=== PATIENT | female | born 1960 | race African-American/Black ===

== ENCOUNTER 2020-03-01 12:38 | Inpatient (IN) | payer MEDICARE, OTHER ==
[~2020-03-01] VITALS: Ht 165.1 cm; Wt 100.7 kg
--- NOTE | ~2020-03-01 | HEMODYNAMI ---
PATIENT:LILIANA SANDERS MEDICAL RECORD: [id number] : 64 LOCATION:[facility] D.2125 [facility]# [id number] ADMISSION DATE: 03/01/20 Generatedon:03/02/202010:43 Patient name: LILIANA SANDERS Patient #: [id number] SSN: : 1960 Date of study: 03/02/2020 Page: Of Hemodynamic Procedure Report Patient Data Patient Demographics Procedure consent was obtained First Name: LILIANA Gender: Female Last Name: MARILYN : 1960 Middle Initial: J Age: 59 year(s) Patient #: [id number] Race: Black Additional ID: [id number] Contact details Address: [address] [address] State: [place] City: [place] Zip code: [address] Past Medical History Allergies Allergen Reaction Date Comments Reported Other allergy 03/02/2020 LORENZO FLOOD Admission Admission Data Admission Date: 03/01/2020 Admission Time: 15:44 Admit Source: Emergency department Room #: D.2125 Height (in.): 64.96 BSA: 2.06 (m2) Height (cm.): 165 BMI: 36.73 (kg/m2) Weight (lbs.): 220.46 Weight (kg.): 100 Lab Results Lab Result Date: 03/02/2020 Lab Result Time: 0:00 Biochemistry Name Units Result Min Max BUN mg/dl 15 --(--*-)-- 7 18 Creatinine mg/dl 1 --(--*-)-- 0.6 1.3 eGFR ml/min 61.83965 *-(----)-- 90 120 NONAFRICAN CBC Name Units Result Min Max Hematocrit % 34.9 *-(----)-- 42 54 Hemoglobin g/dl 11.1 *-(----)-- 13.5 17.5 Procedure Procedure Types Cath Procedure Diagnostic Procedure LHC LHC w/Coronaries Sedation Charges Moderate Sedation up to 15 minutes Procedure Description Procedure Date Procedure Date: 03/02/2020 Procedure Start Time: 10:29 Procedure End Time: 10:42 Procedure Staff Name Function Boston Blanco MD Performing Physician Prabha Persaud RT Monitor Cinthya Raygoza RT Scrub Alvina Villegas RN Nurse Gracie Salcido RT Compugraph Operator Procedure Data Cath Procedure Fluoroscopy Diagnostic fluoroscopy Total fluoroscopy Time: 0.9 time: 0.9 min min Diagnostic fluoroscopy Total fluoroscopy dose: 246 dose: 246 mGy mGy Contrast Material Contrast Material Type Amount (ml) Isovue 300 45 Entry Location Entry Primary Successful Side Size Upsize Upsize Entry Closure Succes sful Closure Location (Fr) 1 (Fr) 2 (Fr) Remarks Device Remarks Femoral Right 5 Fr Exoseal artery Estimated blood loss: 10 ml Diagnostic catheters Device Type Used For End Catheter Placement MULTIPACK JL 4.0 5Fr Procedure catheter MULTIPACK 3DRC 5Fr Procedure catheter MULTIPACK Pigtail 5 Fr Ventriculography catheter Procedure Complications No complications Procedure Medications Medication Administration Route Dosage 0.9% NaCl I.V. 100 ml/hr Oxygen etCO2 Nasal cannula 2 l/min Lidocaine 2% added to field 20 Heparin Flush Bag added to field 2 bags (1000units/500ml NS) Versed I.V. 2 mg Fentanyl I.V. 50 mcg Ativan 2 mg Fentanyl I.V. 50 mcg Hemodynamics Rest BSA: 2.06 (m2) HGB: 11.1 (g/dl) O2 Consumption: Estimated: 215.26 (ml/min) O2 Co nsumption indexed: Estimated:104.5 (ml/min/m) Heart Rate: 93 (bpm) Pressure Samples Time Site Value (mmHg) Purpose Heart Use Rate(bpm) 10:35 LV 160/7,22 Snapshot 90 Gradients Valve Time Site Site Mean SEP/DFP Peak To Heart Use 1 2 (mmHg) (sec/min) Peak Rate (mmHg) (bpm) Aortic 10:35 LV AO 89 Snapshots Pre Cath Intra NCS Post Cath Vital Signs Time Heart Resp SPO2 etCO2 NIBP (mmHg) Rhythm Pain Sedation Rate (ipm) (%) (mmHg) Status Level (bpm) 10:18:23 94 18 100 38.9 178/102(145) NSR 0 (11) 10(A) , No pain 10:22:47 87 22 98 38.9 153/81(128) NSR 0 (11) 10(A) , No pain 10:27:12 83 20 97 41.9 147/76(113) NSR 0 (11) 10(A) , No pain 10:31:28 89 14 96 43.5 144/87(115) NSR 0 (11) 9(A) , No pain 10:36:27 92 22 98 12.7 Measuring NSR 0 (11) 9(A) , No pain 10:36:31 94 25 97 17.2 151/92(119) NSR 0 (11) 10(A) , No pain 10:41:30 97 24 40.4 Measuring NSR 0 (11) 10(A) , No pain 10:42:54 98 13 40.4 Time NSR 0 (11) 10(A) Exceeded , No pain Medications Time Medication Route Dose Verified Delivered Reason Notes Eff ectiveness by by 10:17:01 0.9% NaCl I.V. 100 Boston Alvina used for ml/hr Bella Bakari procedure MD BARRERA 10:17:07 Oxygen etCO2 2 Boston Alivna used for Nasal l/min [facility] procedure cannula MD BARRERA 10:17:12 Lidocaine 2% added 20ml Boston Boston for local to vial [facility] anesthetic field MD SPENCER 10:17:16 Heparin Flush added 2 Boston Boston used for Bag to bags [facility] procedure (1000units/500ml field MD SPENCER NS) 10:25:11 Versed I.V. 2 mg Boston Alvina for Bella Bakari sedation MD BARRERA 10:25:15 Fentanyl I.V. 50 Boston Alvina for mcg BellaAndre Villegas sedation MD BARRERA 10:29:53 Ativan IVP 2 mg Boston Alvina for Bella Bakari sedation MD BARRERA 10:29:56 Fentanyl I.V. 50 Boston Alvina for mcg Bella Bakari sedation material dispatcher Log Time Note 9:59:04 Informed consent obtained and on chart 10:01:18 Prabha BENSON(R) sent for patient. Start room use. 10:01:20 Procedure Status Urgent Heart Cath (IP). 10:01:21 Time tracking: Regular hours (M-F 7:00 - 5:00) 10:01:26 Plan of Care:Hemodynamics will remain stable., Cardiac rhythm will remain stable., Comfort level will be maintained., Respiratory function will remain adequate., Patient/ family verbilizes understanding of procedure., Procedure tolerated without complication., Recovers from procedure without complications.. 10:02:24 H&P Date Dictated: 03/01/2020 ER History on chart.. 10:04:24 Patient allergic to Other allergyREGLAN, COMPAZINE 10:: Lab Result : BUN 15 mg/dl 10:: Lab Result : eGFR NONAFRICAN 61.01948 ml/min 10:: Lab Result : Creatinine 1 mg/dl :: Lab Result : Hematocrit 34.9 % 10:: Lab Result : Hemoglobin 11.1 g/dl 10::18 Patient Weight : 220.46 lbs 10::22 Patient Height : 64.96 inches 10:08:33 Admit Source: Emergency department 10:11:44 Patient received from Med II to CCL 1 Alert and oriented. Tansferred to table in Supine position. 10:11:46 Warm blankets applied, and willis hugger turned on for patient comfort. 10:11:47 Correct patient and procedure confirmed by team. 10:16:53 ECG and BP/O2 sat monitors applied to patient. 10:17:01 0.9% NaCl 100 ml/hr I.V. was administered by Alvina Villegas RN; used for procedure; Verbal order read back and verified. 10:17:05 Vital chart was started 10:17:07 Oxygen 2 l/min etCO2 Nasal cannula was administered by Alvina Villegas RN; used for procedure; Verbal order read back and verified. 10:17:12 Lidocaine 2% 20ml vial added to field was administered by Boston Blanco MD; for local anesthetic; Verbal order read back and verified. 10:17:16 Heparin Flush Bag (1000units/500ml NS) 2 bags added to field was administered by Boston Blanco MD; used for procedure; Verbal order read back and verified. 10:17:55 Baseline sample Acquired. 10:18:01 Rhythm: sinus rhythm 10:18:03 Full Disclosure recording started 10:19:39 H&P Date Dictated: 03/01/2020 Emergent; H&P N/A. 10:19:41 Pre-procedure instructions explained to patient. 10:19:43 Family in waiting room. 10:19:48 Patient NPO since Midnight. 10:19:50 Is the patient allergic to Iodine/contrast media? No. 10:19:53 Was the patient premedicated? Yes 10:20:18 Is patient on blood thinner?No 10:20:22 Patient diabetic? Yes. 10:20:24 If diabetic: On Metformin? No 10:20:56 Snore? Yes 10:20:58 Sleep apnea? No 10:21:12 Patient pain scale 0/10 ?. 10:21:36 IV patent on arrival in left forearm with 0.9% NaCl at [facility]. 10:21:39 Lab results completed and on chart. 10:22:12 Stress Test: no; N/A ? 10:22:17 Right groin area was prepped with chlora-prep and draped in sterile fashion 10:22:18 Alarms reviewed by R. N. 10:22:18 Sharps counted by scrub and verified by R.N. 10:22:21 Physician arrived 10::22 --------ALL STOP TIME OUT------ 10::23 Final Timeout: patient, procedure, and site verified with staff and physician. All members of the team are in agreement. 10:22:25 Right groin site verified by team. 10:22:29 Fire Safety Assessment: A--An alcohol-based skin anteseptic being used preoperatively., C--Open oxygen or nitrous oxide is being used., D--An ESU, laser, or fiber-optic light is being used. 10:22:41 Physical assessment completed. ASA score P 2 - A patient with mild systemic disease as per Boston Blanco MD. 10:23:04 3a) 45-59 Moderately reduced kidney function. 10:23:37 Maximum allowable contrast dose (3.7 X eGFR X 0.75)169 ml. 10:23:41 Sedation plan: IV Moderate Sedation Medication:Versed, Fentanyl 10:23:45 Use device set Femoral Dx 10:23:47 ACIST Syringe (12316) opened to sterile field. 10:23:47 Bag Decanter () opened to sterile field. 10:23:48 Medline Cath Pack ([id number]) opened to sterile field. 10:23:50 ACIST Hand Control (90612) opened to sterile field. 10:23:50 ACIST Manifold (33886) opened to sterile field. 10:23:57 SHEATH 5FR [place] (TZM992) opened to sterile field. 10:23:57 EMERALD Guide Wire (502-416) opened to sterile field. 10:24:01 DIAGNOSTIC Multipack 5Fr catheter set (VR5067) opened to sterile field. 10:24:04 Tegaderm 4 x 4 (1626W) opened to sterile field. 10:25:11 Versed 2 mg I.V. was administered by Alvina Villegas RN; for sedation; Verbal order read back and verified. 10:25:15 Fentanyl 50 mcg I.V. was administered by Alvina Villegas RN; for sedation; Verbal order read back and verified. 10:29:25 Procedure started. 10:29:37 Local anesthetic to right femoral artery with Lidocaine 2% by Boston Blanco MD.INITIAL ACCESS ONLY 10:29:45 A 5 Fr sheath was inserted into the Right Femoral artery 10:29:53 Ativan 2 mg IVP was administered by Alvina Villegas RN; for sedation; Verbal order read back and verified. 10:29:56 Fentanyl 50 mcg I.V. was administered by Alvina Villegas RN; for sedation; Verbal order read back and verified. 10:30:25 j wire advanced. 10:32:03 A MULTIPACK JL 4.0 5Fr catheter was advanced over the wire and used for Procedure. 10:32:05 LCA angiography performed. 10:33:20 Catheter removed. 10:33:38 A MULTIPACK 3DRC 5Fr catheter was advanced over the wire and used for Procedure. 10:33:44 RCA angiography performed. 10:34:24 Catheter removed. 10:34:49 A MULTIPACK Pigtail 5 Fr catheter was advanced over the wire and used for Ventriculography. 10:34:55 LV gram done using GUERIN 10:35:24 EF : 55 % 10:35:40 EXOSEAL 5Fr (EX500) opened to sterile field. 10:35:46 Catheter removed. 10:35:58 Sheath removed intact; hemostasis achieved with Exoseal to the Right Femoral artery. 10:36:32 Procedure ended.(Physican Out) 10:36:46 Fluoroscopy time 00.90 minutes. 10:37:35 Fluoroscopy dose: 246 mGy 10:37:35 Flurop Dose total: 246 10:37:46 Dose Area Product 10 mGy/cm. 10:38:00 Contrast amount:Isovue 300 45ml. 10:38:03 Maximum allowable dose exceeded? No. 10:38:05 Sharps counted by scrub and verified by R.N. 10:38:06 Insertion/operative site no bleeding no hematoma. 10:38:10 Post right femoral artery:stable 10:38:19 Post Procedure Pulses reassessed and unchanged 10:39:00 Post-procedure physical assessment completed. ASA score P 1 - A normal healthy patient as per Boston Blanco MD. 10:39:05 Post procedure rhythm: unchanged. 10:39:11 Estimated blood loss: 10 ml 10:39:13 Post procedure instruction explained to patient.Patient verbalizes understanding. 10:41:08 Procedure type changed to Cath procedure, Diagnostic procedure, LHC, C w/Coronaries, Sedation Charges, Moderate Sedation up to 15 minutes 10:41:12 Procedure and supply charges have been captured, reviewed, submitted and are correct. 10:41:34 Procedure Complication : No complications 10:41:38 Vital chart was stopped 10:41:47 [facility] Findings: mild to moderate CAD (<70%) 10:41:49 Operative report dictated upon procedure completion. 10:41:52 Report given to Med II. 10:41:58 Patient transfered to Med II with Bed. 10:42:16 Procedure ended. 10:42:16 Full Disclosure recording stopped 10:42:22 End room use (Document Last) 10:42:44 End room use (Document Last) 10:43:10 End room use (Document Last) Device Usage Item Name Manufacture Quantity Catalog Hospital Part Current Minimal L ot# / Number Charge Number Stock Stock Serial# Code ACIST Acist 1 44995 [id number] 331383 [id number] 20 Syringe Medical (84572) Systems Inc Bag Microtek 1 2001S 829841 42143 478591 5 Decanter Medical Inc. () Medline Medline 1 [id number] 446858 48598 795930 5 Cath Pack ([id number]) ACIST Hand Acist 1 62187 305056 838068 393246 5 Control Medical (29081) Systems Inc ACIST Acist 1 11630 412931 622872 235248 5 Manifold Medical (76964) Systems Inc SHEATH 5FR Terumo 1 [id number] 606054 901786 343744 5 [place] (GMS266) EMERALD Cardinal 1 502-455 470640 531869 278903 5 Guide Wire Health (502-455) DIAGNOSTIC Cardinal 1 [id number] 210895 97348 353331 30 Multipack Health 5Fr catheter set (JE4936) Tegaderm 4 3M 1 1626W 703630 246918 195621 5 x 4 (1626W) MULTIPACK Cardinal 1 366409 5 JL 4.0 5Fr Health catheter MULTIPACK Cardinal 1 045830 5 3DRC 5Fr Health catheter MULTIPACK Cardinal 1 520333 5 Pigtail 5 Health Fr catheter EXOSEAL 5Fr Cardinal 1 EX500 301142 677584 921529 10 (EX500) Health Signature Audit [place] Stage Time Signature Unsigned Intra-Procedure 03/02/2020 Prabha Persaud 10:42:44 AM RT(R) Intra-Procedure 03/02/2020 Alvina Villegas 10:43:10 AM RN Intra-Procedure 03/02/2020 Bsoton Kenney 10:43:33 AM Andre SPENCER [id number] [place] [address]
[2020-03-01 13:07] LABS: BASOPHILS 0.3 % (0-2); EOSINOPHILS 0 % (0-7); HEMATOCRIT 37.6 % (36.0-48.0); HEMOGLOBIN 11.9 g/dL (12-16); IMMATURE GRANULOCYTES 0.3 % (0-5); LYMPHOCYTES 8.7 % (15-50); MCH 21.3 pg (26.0-34.0); MCHC 31.6 g/dL (31.0-37.0); MCV 67.3 fL (80.0-100.0); MONOCYTES 2.5 % (2-11); NEUTROPHILS 88.2 % (40-80); PLATELET COUNT 430 10x3/uL (130-400); RBC 5.59 10x6/uL (4.00-5.40); RDW 19.4 % (11.5-14.5); WBC 11.4 10x3/uL (4.8-10.8)
[2020-03-01 13:29] LABS: ANION GAP 11.4 mmol/L (8-16); CALCIUM 9.3 mg/dL (8.5-10.1); CARBON DIOXIDE 29.2 mmol/L (21.0-32.0); CREATININE - SERUM 1.4 mg/dL (0.6-1.3); POTASSIUM - SERUM 3.6 mmol/L (3.5-5.1)
[2020-03-01 13:43] LABS: ALBUMIN 3.8 g/dL (3.4-5.0); BILIRUBIN - TOTAL 0.31 mg/dL (0.2-1.3); PROTEIN - SERUM 7.8 g/dL (6.4-8.2)
[2020-03-01 13:56] LABS: TROPONIN-I 0.133 ng/mL (0.000-0.060)
--- NOTE | 2020-03-01 14:35 | NUR ---
PT LEFT ED VIA STRETCHER FOR CT
[2020-03-01 15:22] LABS: GLUCOSE 1000 mg/dL (NEGATIVE); KETONE NEGATIVE (NEGATIVE); NITRITE NEGATIVE (NEGATIVE); UROBILINOGEN NORMAL (NORMAL)
[2020-03-01 15:23] LABS: BILIRUBIN NEGATIVE (NEGATIVE)
--- NOTE | 2020-03-01 16:24 | NUR ---
PT REQUESTING TO LEAVE, EDP AWARE. PT AMBULATED TO RESTROOM.
[2020-03-01 17:21] VITALS: BP 170/99; Ht 165.1 cm; Wt 100.7 kg
[2020-03-01 19:03] LABS: CKMB 3.4 U/L (0.0-3.6); CREATINE KINASE 269 UL (21-215)
[2020-03-01 19:04] LABS: TROPONIN-I 0.121 ng/mL (0.000-0.060)
[2020-03-01] MEDS ORDERED: TRICEBA SC (19:43)
[2020-03-01] MEDS ORDERED: HYDROCHLOROTHIA25 MG PO (19:44)
[2020-03-01] MEDS ORDERED: DIOVAN40 MG PO (19:44)
[2020-03-01 20:00] VITALS: BP 127/64
[2020-03-01 23:44] LABS: CKMB 3.2 U/L (0.0-3.6); CREATINE KINASE 288 UL (21-215)
[2020-03-02] VITALS: BP 151/74
--- NOTE | 2020-03-02 00:54 | NUR ---
INITIAL ROUNDS COMPLETED AT 1915 HRS. PT DEMANDING IV DILAUDID INSTEADY OF MORPHINE. HEALTHAR SERVICES PAGED AT 1954 AND 2029 HRS. ASSESSMENT COMPLETED AT [address] PER CM HR 110. ALERT AND ORIENTED TO PERSON, PLACE AND TIME. FERNANDES. IV TO RFA WITH NS AT 75CC/HR AND ZOFRAN DRIP AT 4.7CC/HR. IV PATENT. LUNGS DIMINISHED IN BASES BILAT. FERNANDES. PALPABLE PERIPHERAL PULSE. HYPOACTIVE BS NOTED. HEALTHAR ERVICES REPAGED AT 2099 HRS. PAGE RETURNED AT 2109 HRS. INFORMED Francesca WILLARD APN PT WANTING IV DILAUDID INSTEAD OF MORPHINE. NEW ORDER RECEIVED AND NOTED. PM FSNS 236. 8 UNITS REG INSULIN GIVEN SUB-Q TO UPPER R ARM. DILAUDID 1MG SIVP GIVEN FOR C/O ABD PAIN 04/10. EKG DONE AT 0020 HRS. PT REQUESTING DILAUDID. INFORMED PT DILAUDID NOT DUE UNTIL 0150 HRS. PT STATED UNDESTANDING. PT CURRENTLY RESTING WITH EYES CLOSED. RESP EVEN AND REGULAR. SR UP X1,CALL LIGHT WITHIN REACH.
--- NOTE | 2020-03-02 01:57 | NUR ---
DILAUDID 1MG SIVP GIVEN FOR C/O ABD PAIN 02/07. SR UP X1,CALL LIGHT WITHIN REACH.
[2020-03-02 04:00] VITALS: BP 178/84
--- NOTE | 2020-03-02 04:40 | NUR ---
PT RESTING WITH EYES CLOSED. RESP EVEN AND REGULAR. CALL LIGHT WITHIN REACH.
--- NOTE | 2020-03-02 06:02 | NUR ---
AM FSBS 113. NO COVERGE NEEDED. DILAUDID 1MG SIVP GIVEN FOR C/O ABD PAIN. PT RESTED WELL DURING SHIFT. NEEDS MET; WILL CONTINUE TO MONITOR.
[2020-03-02 07:09] LABS: BASOPHILS 0.1 % (0-2); EOSINOPHILS 0.1 % (0-7); HEMATOCRIT 34.9 % (36.0-48.0); HEMOGLOBIN 11.1 g/dL (12-16); IMMATURE GRANULOCYTES 0.3 % (0-5); LYMPHOCYTES 8.8 % (15-50); MCH 21.3 pg (26.0-34.0); MCHC 31.8 g/dL (31.0-37.0); MONOCYTES 6.2 % (2-11); NEUTROPHILS 84.5 % (40-80); PLATELET COUNT 426 10x3/uL (130-400); RBC 5.21 10x6/uL (4.00-5.40); RDW 19.5 % (11.5-14.5)
[2020-03-02 07:16] LABS: WBC 14.6 10x3/uL (4.8-10.8)
[2020-03-02 07:43] LABS: CALC OSMOLALITY 277 mosm/kg (275-300); CALCIUM 8.9 mg/dL (8.5-10.1); CHLORIDE - SERUM 101 mmol/L (98-107); CKMB 3.3 U/L (0.0-3.6); CREATINE KINASE 329 UL (21-215); GLUCOSE 114 mg/dL (74-106); MAGNESIUM - SERUM 1.8 mg/dL (1.8-2.4); PHOSPHOROUS 2.8 mg/dL (2.5-4.9); POTASSIUM - SERUM 3.3 mmol/L (3.5-5.1); SODIUM 138 mmol/L (136-145); UREA NITROGEN 15 mg/dL (7-18)
[2020-03-02 07:44] LABS: TROPONIN-I 0.107 ng/mL (0.000-0.060); eGFR NON AFRICAN AMERICAN 61 mL/min (90-120)
[2020-03-02 09:38] VITALS: BP 177/86
--- NOTE | 2020-03-02 10:09 | NUR ---
PRE-OPS GIVEN. TO SPECIAL TESTER BY BED.
[2020-03-02 10:10] LABS: CHOL - HDL RATIO 3.5 ratio (2.3-4.1); LDL-HDL RATIO 2.3 ratio (1.5-3.5)
--- NOTE | 2020-03-02 11:04 | NUR ---
BACK FROM LIGHTING ADVISER. VS WNL. RIGHT GROIN STABLE WITHOUT BLEEDING OR HEMATOMA NOTED. WILL MONITOR.
--- NOTE | 2020-03-02 12:43 | NUR ---
BED REST UP. GROIN STABLE.
[2020-03-02] MEDS ORDERED: ZOFRAN4 MG PO (14:48)
--- NOTE | 2020-03-02 14:58 | NUR ---
ZOFRAN GIVEN FOR C/O NAUSEA. RX CALLED IN TO [facility] [address]. IV AND TELEMETRY DCD. DC PLANS GIVEN. UNDERSTANDING VOICED. WILL MONITOR.
--- NOTE | 2020-03-02 16:12 | NUR ---
STATES SHE IS GETTING SOME REST BEFOR SHE HAS TO LEAVE.
--- NOTE | 2020-03-02 16:53 | NUR ---
ESCORTED TO CAR BY W/C.
--- NOTE | 2020-03-03 13:47 | OP ---
PATIENT NAME: LILIANA SANDERS MEDICAL RECORD: [id number] :64 LOCATION:D.M2 D.2125 ADMISSION DATE:03/01/20 SURGEON: MAHSA WHITE MD DATE OF OPERATION: 03/02/2020 PROCEDURE: Left heart catheterization, selective coronary angiography, right femoral artery approach. CATHETERS: A 5-Mongolian sheath, 5/4 left and right Homero, 5/4 pig. The procedure was well tolerated. The patient returned to zavala, sheath removed. ExoSeal device was placed. FINDINGS: Left ventriculography in 30-degree GUERIN view: Normal wall motion and normal systolic function. CORONARY ANATOMY: LEFT MAIN: Left main is free of disease. LAD: Free of disease in the diagonal system. CIRCUMFLEX: Free of disease in the marginal system. RIGHT CORONARY ARTERY: Dominant artery, gives rise to PDA, free of disease. IMPRESSION: Normal left ventricular systolic function, normal coronary anatomy. TRANSINT:[id number] Voice Confirmation ID: [id number] DOCUMENT ID: [id number] MAHSA WHITE MD at 1347 CC: [id number] DICTATION DATE: 03/02/20 1101 STATE TESTED NURSING ASSISTANT: 03/02/202057 DIS IN 03/02/20 [address] [place] [address]
--- NOTE | 2020-03-03 13:47 | CN ---
PATIENT NAME:LILIANA SANDERS MEDICAL RECORD: [id number] : 64 LOCATION:. D.2125 ADMIT DATE: 03/01/20 ACCOUNT: [id number] CONSULTING PHYSICIAN: MAHSA WHITE MD REFERRING PHYSICIAN: MIMA DONNELLY MD DATE OF CONSULTATION: 03/02/2020 HISTORY OF PRESENT ILLNESS: A 59-year-old female with no known history of coronary artery disease. She has a history of diabetes mellitus, hypertension, [id number], admitted with chest/abdominal pain, has a strong family history of coronary artery disease ongoing for the past 2-3 days, found to have elevated cardiac enzymes, has noticed increasing effort intolerance over the past few weeks as well, noted to have elevated cause cardiac enzymes. PAST MEDICAL HISTORY: Includes; 1. History of hypertension. 2. Hyperlipidemia. 3. Diabetes mellitus. 4. Gastroparesis. ALLERGIES: REGLAN AND COMPAZINE. SOCIAL HISTORY: Nonsmoker, nondrinker. No set exercise program, has been under more stress with inpatient at [facility] in [place]. MEDICATIONS: Diovan 40 mg p.o. every day, HCTZ 25 every day, does not remember other medications. REVIEW OF SYSTEMS: The patient reports easy bruising but reports no swollen glands. The patient reports no fever, no night sweats, no significant weight gain, no significant weight loss. No significant exercise tolerance. The patient reports no dry eyes, no irritation, no vision change. Patient reports no difficulty hearing and no ear pain. Patient reports no frequent nose bleeds or nose and sinus problems. Patient reports on arm pain on exertion. No shortness of breath while lying down. No history of heart murmur. Patient reports no cough, no wheezing or coughing up blood. Patient reports no abdominal pain, no vomiting. Normal appetite. No diarrhea and not vomiting blood. No nausea and no constipation. Patient reports no incontinence. No difficulty urinating. No hematuria. No increased frequency. Patient reports no muscle aches. No weakness, no arthralgias, no back pain. No swelling of the extremities. Patient reports no abnormal mole, no jaundice, no rashes. Reports no loss of consciousness. No weakness and no numbness. No seizures, dizziness, or headaches. The patient reports no depression, no sleep disturbance, feeling safe in a relationship and no alcohol abuse. Patient reports on fatigue. Reports no runny nose or sinus pressure. No itching, no hives, and no frequent sneezing. PHYSICAL EXAMINATION: GENERAL: This is a middle-aged female, in no acute distress. VITAL SIGNS: Blood pressure 177/86, pulse 90 and regular. HEENT: Normocephalic, atraumatic. NECK: No bruits noted. HEART: Regular. Questionable S4 gallop. LUNGS: Good air excursion. ABDOMEN: Soft, nontender. CONSULT REPORT [id number] LILIANA SANDERS EXTREMITIES: Pulses 2+ with no edema. NEUROLOGIC: Grossly intact. DIAGNOSTIC DATA: EKG shows LVH by voltage. IMPRESSION: Acute coronary syndrome, probable [id number] myocardial infarction. PLAN: For angiography, intervention based on above. TRANSINT:[id number] Voice Confirmation ID: [id number] DOCUMENT ID: [id number] MAHSA WHITE MD at 1347 CC: [id number] DICTATION DATE: 03/02/20 1100 KINDERGARTEN TUTOR: 03/02/20 1551 DIS IN 03/02/20 [address] [place] [address]
== END 2020-03-02 17:00 | disposition home or self-care (01) | DRG 287 ==
LOC: D.ER 12:38 → D.M2 15:44 → D.ER 16:43 → D.M2 03-02 17:00
PROVIDERS: Family Medicine; Internal Medicine Interventional Cardiology; ADMIT Family Medicine; ATTEND Family Medicine
PROC: B2151ZZ Fluoroscopy of Left Heart using Low Osmolar Contrast (ICD-10-PCS; 2020-03-02)
PROC: 4A023N7 Measurement of Cardiac Sampling and Pressure, Left Heart, Percutaneous Approach (ICD-10-PCS; 2020-03-02)
PROC: B2111ZZ Fluoroscopy of Multiple Coronary Arteries using Low Osmolar Contrast (ICD-10-PCS; principal; 2020-03-02 10:00)
DX: I24.9 Acute ischemic heart disease, unspecified (principal); N17.9 Acute kidney failure, unspecified; E11.43 Type 2 diabetes mellitus with diabetic autonomic (poly)neuropathy; E78.5 Hyperlipidemia, unspecified; I10 Essential (primary) hypertension